=== PATIENT | female | born 1935 | race Caucasian/White ===

== ENCOUNTER → 2016-08-12 | Outpatient (CLI) | payer MEDICARE, BC ==
[~2016-08-12] MED LIST: ALDACTONE25 MG PO; AMBIEN5 MG PO; APRESOLINE25 MG PO; CALCIUM CARBON600 MG PO; CITRACAL950 MG PO; COUMADIN ** IA5 MG PO; FERGON325 M1 PO; FISH OIL1000 MG PO; GLUCOTEN CAPLE1 EACH PO; LASIX80 MG PO; LOTENSIN10 MG PO; LOVENOX 6060 MG/0.6 SUB-Q; THERAGRAN-M1 TAB PO; TOPROL XL 5050 MG PO; VITAMIN C500 M1 PO; ZOCOR20 MG PO; ZOCOR80 MG PO
[2016-08-12 13:54] LABS: BASOPHIL % 0.7 %; EOSINOPHIL # 0.1 K/uL (0.0-0.5); EOSINOPHIL % 2.4 %; HEMOGLOBIN 8.4 g/dL (10.0-15.0); IMMATURE GRANULOCYTE % 0.2 %; LYMPHOCYTE # 0.6 K/uL (0.8-4.0); LYMPHOCYTE % 12.2 %; MCHC 32.3 gm/dL (32.0-36.5); MCV 95.9 fl (83.0-98.0); MONOCYTE # 0.4 K/uL (0.0-1.0); MONOCYTE % 9.6 %; MPV 10.2 fl (9.4-12.4); NEUTROPHIL # (ANC) 3.4 K/uL (1.8-7.8); NEUTROPHIL % 74.9 %; NRBC % 0 /100WBC (0-0.00); PLATELET COUNT 144 K/uL (150-450); RBC 2.71 M/uL (3.00-5.00); RDW-CV 17.2 % (11.9-14.6); WBC 4.5 K/uL (4.0-11.0)
[2016-08-12 14:10] LABS: ALBUMIN 3.4 gm/dL (3.5-5.0); ANION GAP 10.7 (10.0-19.0); CALCIUM 8.8 mg/dL (8.5-10.5); CREATININE 1.4 mg/dL (0.5-1.1); POTASSIUM 4.7 mMol/L (3.7-5.1); TOTAL BILIRUBIN 1.2 mg/dL (0.0-1.5); TOTAL PROTEIN 6.5 g/dL (6.0-8.4)
== END | disposition disaster alternative care site (69) ==
LOC: LNHI 13:47
PROVIDERS: Internal Medicine Cardiovascular Disease
DX: I72.1 Aneurysm of artery of upper extremity (principal); I50.32 Chronic diastolic (congestive) heart failure; I48.2 Chronic atrial fibrillation

== ENCOUNTER → 2016-11-18 | Outpatient (CLI) | payer MEDICARE, BC ==
[2016-11-18 16:45] LABS: BASOPHIL # 0.1 K/uL (0.0-0.2); BASOPHIL % 1.2 %; EOSINOPHIL # 0.2 K/uL (0.0-0.5); EOSINOPHIL % 3.9 %; HEMOGLOBIN 11.5 g/dL (10.0-15.0); IMMATURE GRANULOCYTE % 0.2 %; LYMPHOCYTE # 0.8 K/uL (0.8-4.0); LYMPHOCYTE % 18.2 %; MCHC 32.9 gm/dL (32.0-36.5); MCV 94.6 fl (83.0-98.0); MONOCYTE # 0.5 K/uL (0.0-1.0); MONOCYTE % 10.9 %; MPV 10.4 fl (9.4-12.4); NEUTROPHIL # (ANC) 2.7 K/uL (1.8-7.8); NEUTROPHIL % 65.6 %; NRBC % 0 /100WBC (0-0.00); PLATELET COUNT 130 K/uL (150-450); RDW-CV 16.9 % (11.9-14.6); WBC 4.1 K/uL (4.0-11.0)
[2016-11-18 16:47] LABS: MCH 31.1 pg (27.0-34.0)
[2016-11-18 17:12] LABS: ALBUMIN 3.7 gm/dL (3.5-5.0); CALCIUM 9.1 mg/dL (8.5-10.5); CREATININE 1.4 mg/dL (0.5-1.1); TOTAL PROTEIN 7.2 g/dL (6.0-8.4)
[2016-11-18 17:15] LABS: TOTAL BILIRUBIN 1.5 mg/dL (0.0-1.5)
== END ==
LOC: LNHI 16:38
PROVIDERS: Internal Medicine Cardiovascular Disease
DX: I48.91 Unspecified atrial fibrillation (principal); D64.9 Anemia, unspecified; I50.32 Chronic diastolic (congestive) heart failure